=== PATIENT | male | born 1945 | race Caucasian/White ===

== ENCOUNTER → 2018-08-27 | Outpatient (CLI) | payer MEDICARE | LOC: LAB.O 15:18 | PROVIDERS: ATTEND Surgery | DX: L02.214 Cutaneous abscess of groin (principal) ==

== ENCOUNTER → 2018-09-25 | Outpatient (CLI) | payer MEDICARE ==
--- NOTE | 2018-09-25 10:34 | RAD ---
EXAM DESCRIPTION: Chest,2 Views CLINICAL HISTORY: PAIN IN LEFT SHOULDER COMPARISON: None TECHNIQUE: PA/lateral FINDINGS: There is no acute appearing cardiac or pulmonary abnormality. Heart size is normal with normal pulmonary vascularity. No pleural effusion or pneumothorax. Lungs are clear with no consolidating infiltrate. Lateral view shows intact sternum and T-spine. IMPRESSION: No acute process is identified in the chest. Electronically signed by: Srinivasa Dacosta MD 09/25/2018 10:31 AM CDT
--- NOTE | 2018-09-25 10:36 | RAD ---
EXAM DESCRIPTION: Shoulder,Left four x-ray Views CLINICAL HISTORY: PAIN IN LEFT SHOULDER COMPARISON: None Available. TECHNIQUE: Four views of the left shoulder. FINDINGS: There is adequate internal and external rotation. Normal alignment on transaxillary view and transscapular Y view There is no fracture or dislocation. Degenerative changes at the AC joint and glenohumeral joint are relatively mild. No focal bone lesion. IMPRESSION: Negative for fracture or dislocation. Electronically signed by: Srinivasa Dacosta MD 09/25/2018 10:33 AM CDT
== END ==
LOC: RAD 09:09
PROVIDERS: ATTEND Nurse Practitioner Family
DX: M25.512 Pain in left shoulder (principal)

== ENCOUNTER → 2018-10-08 | Outpatient (CLI) | payer MEDICARE ==
--- NOTE | 2018-10-09 07:51 | MRI ---
EXAM DESCRIPTION: MRI left shoulder CLINICAL HISTORY: Shoulder pain. Rotator cuff syndrome COMPARISON: None. TECHNIQUE: Multiplanar, multisequence MR images of the left shoulder FINDINGS: High-grade interstitial partial tear of the supraspinatus tendon mid to posterior interstitial tear primarily. Mild irregularity and edema in the horizontal facet greater tuberosity. Interstitial tear extends mediolateral about 1.9 cm. Focal bursal surface linear extension along the posterior supraspinatus. No full-thickness tendon gap or retraction. Muscle volume mildly decreased with grade 1 fatty infiltration Infraspinatus tendinosis with chronic partial interstitial tear of the anterior tendon, mediolateral extent about 1.5 cm. Minimal irregularity of the anterior oblique facet greater tuberosity. Muscle volume is mildly decreased with grade 1 fatty infiltration. There is also diffuse edema throughout the infraspinatus, the appearance of which suggests denervation type edema. No obvious etiology. Teres minor tendon intact. Normal muscle volume and signal Subscapularis tendinosis with partial interstitial tear of the cranial insertional fibers. Muscle volume is mildly decreased with grade 2 fatty infiltration. Long head biceps tendon subluxation along the lesser tuberosity, partially interdigitating into the upper subscapularis tendon insertion. No intrinsic signal abnormality in the biceps. Labral anchor intact. Posterior inferior labral tear with a 2 mm paralabral cyst posteriorly sagittal image 14, axial image 7. Sublabral glenoid rim osteophyte anteriorly. Chondral thinning posterior superior glenoid without full-thickness defect or subchondral marrow abnormality. No high-grade chondrosis or chronic osteochondral lesion of the humeral head Mild acromioclavicular osteoarthritis. Type II acromion IMPRESSION: Structurally significant high-grade partial tear of the supraspinatus tendon, primarily and interstitial tear with linear bursal surface extension posteriorly Tendinosis and low-grade chronic interstitial partial tear of the anterior infraspinatus tendon. Atypical mild diffuse intramuscular edema, the appearance of which suggests denervation type edema, etiology unclear Interstitial partial tear of the cranial insertional subscapularis tendon with associated long head biceps tendon subluxation Posterior inferior labral tear and tiny paralabral cysts Electronically signed by: Chacho Randolph MD 10/09/2018 7:49 AM CDT
== END ==
LOC: MRI 09:21
PROVIDERS: ATTEND Orthopaedic Surgery
DX: S46.012A Strain of muscle(s) and tendon(s) of the rotator cuff of left shoulder, initial encounter (principal); S46.112A Strain of muscle, fascia and tendon of long head of biceps, left arm, initial encounter; S43.432A Superior glenoid labrum lesion of left shoulder, initial encounter; M19.012 Primary osteoarthritis, left shoulder; M65.811 Other synovitis and tenosynovitis, right shoulder

== ENCOUNTER → 2018-10-12 | Outpatient (CLI) | payer MEDICARE ==
--- NOTE | 2018-10-12 11:38 | RAD ---
EXAM DESCRIPTION: Chest,2 Views CLINICAL HISTORY: PRE OP COMPARISON: Previous study September 25, 2018 TECHNIQUE: PA/lateral FINDINGS: There is no acute appearing cardiac or pulmonary abnormality. Heart size is normal with normal pulmonary vascularity. No pleural effusion or pneumothorax. Lungs are clear with no consolidating infiltrate. Lateral view shows intact sternum and T-spine. IMPRESSION: No acute process is identified in the chest. Electronically signed by: Srinivasa Dacosta MD 10/12/2018 11:36 AM CDT
== END ==
LOC: LAB.O 10:41
PROVIDERS: ATTEND Orthopaedic Surgery
DX: Z01.818 Encounter for other preprocedural examination (principal)

== ENCOUNTER 2018-11-07 05:22 | Day surgery (SDC) | payer MEDICARE ==
--- NOTE | 2018-11-06 09:48 | HP ---
CHIEF COMPLAINT: Left shoulder pain. HISTORY OF PRESENT ILLNESS: Manohar is a 72-year-old male with a history of pain in the shoulder. He has had pain going on for several years. He denies any radiation of pain and denies any neurologic symptoms. We have talked about options for the rotator cuff tear that was identified on MRI. He has requested operative intervention. After discussing the risks, benefits and alternatives to that, he has given informed consent. PAST SURGICAL HISTORY: None. MEDICATIONS: 1. Tramadol. ALLERGIES: NO KNOWN DRUG ALLERGIES. CODE STATUS: Full code. IMMUNIZATIONS: Up to date. FAMILY HISTORY: None pertinent to today's complaint. SOCIAL HISTORY: The patient does not drink, smoke or use any illicit drugs. REVIEW OF SYSTEMS: Negative except as indicated in the History of Present Illness. PHYSICAL EXAMINATION: MENTAL STATUS: The patient is awake, alert, and is able to give a good history and participate in the physical. The patient is oriented to person, place and time. SKIN: Normal tone and turgor. MUSCULOSKELETAL: He is very tender to palpation in the subacromial space. He has pain over the acromioclavicular joint. He has intact sensation. He has difficulty with abduction beyond about 50 degrees, but does have up to about 100 degrees. Strength is 5/5 with die barber, however, he has decreased abduction and forward flexion strength. Internal rotation is to about L2. IMAGING: MRI does show rotator cuff tear. ASSESSMENT: 1. Rotator cuff tear. PLAN: The plan at this point is for rotator cuff repair. We have discussed the risks, benefits, and alternatives to operative therapy and the patient has given informed consent. [id number]
[2018-11-07] MEDS ORDERED: LACTATED RINGERS 1,000 ML ONE ×2 (05:46→10:08)
[2018-11-07] MEDS ORDERED: ceFAZolin SODIUM 1 GM VIAL ONE ×2 (06:35→07:49)
[2018-11-07] MEDS ORDERED: SODIUM CHL 0.9% 100ML MINI-BAG 100 ML IVPB ONE (06:35)
[2018-11-07] MEDS ORDERED: MIDAZOLAM INJ 2 MG/2 ML VIAL ONE (07:38)
[2018-11-07] MEDS ORDERED: fentaNYL CITRATE INJ 50 MCG/ML AMP ONE (07:38)
[2018-11-07] MEDS ORDERED: BUPIVACAINE 0.5% 30 ML VIAL INJ ONE ×2 (07:42→09:22)
[2018-11-07] MEDS ORDERED: BUPIVACAINE LIPOSOME 13.3 MG/ML VIAL INJ ONE ×2 (07:44→09:22)
[2018-11-07] MEDS ORDERED: VANCOMYCIN HCL INJ 1,000 MG VIAL IVPB ONE (07:49)
[2018-11-07] MEDS ORDERED: ROCURONIUM BROMIDE 10 MG/ML VIAL ONE (08:06)
[2018-11-07] MEDS ORDERED: ACETAMINOPHEN IV 1000MG 100 ML ONE (08:29)
[2018-11-07] MEDS ORDERED: SUGAMMADEX SODIUM 200 MG/2 ML VIAL IV ONE (09:29)
[2018-11-07] MEDS ORDERED: PROPOFOL 200 MG/20 ML VIAL IV ONE (10:00)
[2018-11-07] MEDS ORDERED: ePHEDrine SULF 50 MG/ML IV ONE (10:00)
[2018-11-07] MEDS ORDERED: LIDOCAINE 1% 10 ML VIAL INJ ONE (10:00)
[2018-11-07] MEDS ORDERED: raNITIdine HCL INJ 25 MG/ML VIAL IV ONE (10:00)
[2018-11-07] MEDS ORDERED: DEXAMETHASONE INJ 10 MG/ML VIAL IV ONE (10:00)
[2018-11-07] MEDS ORDERED: LACTATED RINGERS 1,000 ML IVS ONE (10:04)
[2018-11-07] MEDS ORDERED: HYDROcodone 5MG/APAP 325MG 1 EA TAB ONE (10:33)
[2018-11-07] MEDS ORDERED: HYDROCOD/APAP 5/325 (ER DISP) #3 TAB PO ONE (10:59)
[2018-11-07 12:15] VITALS: BP 132/86; TEMP 97.8; O2SAT 93
--- NOTE | 2018-11-09 10:31 | OP ---
DATE OF PROCEDURE: 11/07/18 PREOPERATIVE DIAGNOSIS: 1. Right rotator cuff tear. 2. Impingement. POSTOPERATIVE DIAGNOSIS: 1. Right rotator cuff tear. 2. Impingement. PROCEDURE: 1. Rotator cuff repair. 2. Acromioplasty. SURGEON: Guzman Tineo MD. HISTOLOGY MANAGER: Ulisses Dao CST, SA-C. ANESTHESIA: General anesthesia. COMPLICATIONS: None. FINDINGS: 1. Approximately 1 cm tear in the supraspinatus. 2. Type 2 acromion. INDICATION: Mr. Andrews has a history of severe and progressively worsening shoulder pain. He has had conservative measures, however, has failed to gain relief. Because of his ongoing symptoms, he has requested operative intervention. After discussing the risks, benefits and alternatives to that, the patient has given informed consent for the above procedure. PROCEDURE: The patient was brought to the Operating Room and placed in the supine position. General anesthesia was induced and the patient was transitioned into the beach chair position. The arm was sterilely prepped and draped. Following prepping and draping, an incision was made at the lateral border of the acromion. Full thickness skin flaps were developed and following that, a split was made between the anterior and middle heads of the deltoid. An acromioplasty was performed and bursectomy was performed. The rotator cuff was identified. It was fully examined and found to have the aforementioned tear. The tear was debrided and a single suture anchor was used that was double-loaded and passed through the supraspinatus. A second suture anchor laterally was placed to complete a knotless repair. The arm was taken through a range of motion and the cuff tear was found to be stable. The wound was very thoroughly irrigated and closed with reapproximation of the deltoid followed by reapproximation of the skin and subcutaneous tissues with a combination of running and interrupted subcuticular stitches. Sterile dressing was placed. The patient was placed in a sling. The patient was awoken from anesthesia and taken to Recovery. POSTOPERATIVE PLAN: Given the small size of the tear, we will start therapy relatively early. We are also going to have him return to the clinic in two days for followup. [id number]
== END 2018-11-07 11:50 | disposition home or self-care (01) ==
LOC: AMB 05:22
PROVIDERS: ATTEND Orthopaedic Surgery
DX: M75.101 Unspecified rotator cuff tear or rupture of right shoulder, not specified as traumatic (principal); M25.811 Other specified joint disorders, right shoulder; Z79.891 Long term (current) use of opiate analgesic
CPT/HCPCS: 01630; 0232T; 29826; 29827; 80307; J0690; J1100; J2250; J2780; J3010; J3370; J3490; J7050; J7120